=== PATIENT | female | born 1980 | race Caucasian/White ===

== ENCOUNTER 2021-01-06 12:26 | Emergency (ER) | payer SELFPAY ==
[~2021-01-06] VITALS: Ht 160 cm; Wt 92.1 kg
[~2021-01-06 12:26] MED LIST: AZITHROMYCIN250 MG PO; PREDNISONE20 MG PO; PROAIR HFA8.5 GM INH
--- NOTE | 2021-01-06 20:17 | EKG ---
[facility] [address] [facility] [place], [place] [address] Signed Normal sinus rhythm Normal ECG No previous ECGs available Confirmed by KERRI JOHNSON DO ([id number]) on 01/06/2021 8:17:14 PM Electronically Signed By: KERRI JOHNSON DO 01/06/21 2017 PATIENT NAME: RACHEL SUAZOTERESAJOSEFINA HOLMDEL Electrocardiogram DATE OF : 76 PHYSICIAN: KERRI JOHNSON DO REPORT #: [id number] REPORT IS CONFIDENTIAL AND NOT TO BE RELEASED WITHOUT AUTHORIZATION
== END 2021-01-06 17:00 | disposition home or self-care (01) ==
LOC: ED 12:26
DX: R07.89 Other chest pain (principal); F17.200 Nicotine dependence, unspecified, uncomplicated; Z88.5 Allergy status to narcotic agent
CPT/HCPCS: 71045; 71260; 80053; 83735; 84484; 85025; 93005; 93010; 93971; 99285-25; J1885; Q9967